=== PATIENT | female | born 1990 | race Two or more races ===

== ENCOUNTER 2016-08-28 17:33 | Emergency (ER) | payer SELFPAY ==
[~2016-08-28] VITALS: Ht 157.5 cm; Wt 70.3 kg
[2016-08-28 17:53] LABS: BILIRUBIN,URINE NEGATIVE (NEG); GLUCOSE,URINE NEGATIVE (NEG); NITRITE,URINE NEGATIVE (NEG); PH,URINE 7.5; PROTEIN,URINE 30 mg/dL (NEG-TRACE)
[2016-08-28 17:59] LABS: BACTERIA,URINE 0 /HPF (0-FEW); RBC,URINE OCC /HPF (0-2); SQUAMOUS EPITHELIAL CELL,UR FEW /LPF
[2016-08-28] MEDS ORDERED: ONDANSETRON PF 4 MG/2 ML VIAL. IV ONE (18:15)
[2016-08-28] MEDS ORDERED: IV NORMAL SALINE 1000ML BAG 1,000 ML IV ONE (18:15)
[2016-08-28 18:17] LABS: BASO # 0.1 x10^3/uL (0.0-0.2); BASO % 1 % (0-3); EOS % 3 % (0-3); HEMOGLOBIN 13.9 g/dL (12.0-15.5); LYMPH # 2.4 x10^3/uL (1.0-4.8); LYMPH % 21 % (24-48); MEAN CORPUSCULAR HEMOGLOBIN 29 pg (25-35); MEAN CORPUSCULAR HGB CONC 33 g/dL (31-37); MEAN CORPUSCULAR VOLUME 87 fL (79-100); MONO % 8 % (0-9); NEUT % 69 % (31-73); PLATELET COUNT 231 x10^3/uL (140-400); RED BLOOD COUNT 4.85 x10^6/uL (3.50-5.40); RED CELL DISTRIBUTION WIDTH 13.5 % (11.5-14.5); WHITE BLOOD COUNT 11.5 x10^3/uL (4.0-11.0)
[2016-08-28 18:30] LABS: CALCIUM 8.9 mg/dL (8.5-10.1); CREATININE 0.6 mg/dL (0.6-1.0); POTASSIUM 3.5 mmol/L (3.5-5.1)
[2016-08-28 18:36] LABS: ALBUMIN/GLOBULIN RATIO 0.9 (1.0-1.7); TOTAL BILIRUBIN 0.3 mg/dL (0.2-1.0); TOTAL PROTEIN 8.6 g/dL (6.4-8.2)
[2016-08-28] MEDS ORDERED: fentaNYL PF VIAL 100 MCG/2 ML VIAL IV PRN (18:45)
--- NOTE | 2016-08-28 19:26 | ED.ADGEN ---
Past Medical History Past Medical History: No Pertinent History Past Surgical History: Alcohol Use: Occasionally Additional Information: Pt states she had 2 drinks last night. Drug Use: None Adult General Chief Complaint Chief Complaint: ABDOMINAL PAIN IN HPI HPI Patient is a 26 year old woman, , with a history of for uncomplicated previous pregnancies, status post both vaginal delivery and , who presents emergency Department with a complaint of lower abdominal cramping, and spotting. Patient was not aware that she is prior to arrival in emergency department. She states that she has been breast-feeding for the past 14 months. Patient states that she noted abdominal cramping that feels consistent with cramping she expressed her previous pregnancies, and bright red blood noted on the toilet tissue when she wiped earlier today. Denies any kareem bleeding, any discharge or drainage, any fluid gush or passage of clots or material. She states that her last sexual intercourse was 3 days ago, states it was slightly painful was unusual. Denies any concerns for STI exposures. Denies any injuries, states that she was having cramping in her lower abdomen it did radiate to the back, but currently is not expressing any symptoms. She states symptoms do come and go. Denies any injuries, any fevers or chills, any chest pain, shortness breath, states that she did have one episode of nausea and vomiting this morning. No sick contacts or exposures. No urinary complaints. Patient's is present at bedside. Patient is Ethiopian speaking only, and translation obtained via language line biology department chair. Review of Systems Review of Systems Constitutional: Denies fever or chills. [] Eyes: Denies change in visual acuity. [] HENT: Denies nasal congestion or sore throat. [] Respiratory: Denies cough or shortness of breath. [] Cardiovascular: Denies chest pain or edema. [] GI: Cramping lower quadrant abdominal pain rating to the back, associated with nausea and vomiting, with vaginal spotting. : Denies dysuria. [] Musculoskeletal: Denies back pain or joint pain. [] Integument: Denies rash. [] Neurologic: Denies headache, focal weakness or sensory changes. [] Endocrine: Denies polyuria or polydipsia. [] Lymphatic: Denies swollen glands. [] Psychiatric: Denies depression or anxiety. [] Current Medications Current Medications Current Medications Medications (Trade) Dose Ordered Sig/Josiane Start Time Stop Time Status Last Admin Dose Admin Fentanyl Citrate (Fentanyl 2ml Vial) 25 mcg PRN Q15MIN PRN 08/28/16 18:45 08/28/16 20:47 DC 08/28/16 18:59 25 MCG Ondansetron HCl (Zofran) 4 mg 1X ONCE 08/28/16 18:15 08/28/16 18:16 DC 08/28/16 18:59 4 MG Sodium Chloride 1,000 ml @ 1,000 mls/hr 1X ONCE 08/28/16 18:15 08/28/16 19:14 DC 08/28/16 18:59 1,000 MLS/HR Allergies Allergies Allergies Coded Allergies Type Severity Reaction Last Updated Verified No Known Drug Allergies 08/28/16 No Physical Exam Physical Exam Constitutional: Well developed, well nourished, no acute distress, non-toxic appearance. [] HENT: Normocephalic, atraumatic, bilateral external ears normal, oropharynx moist, no oral exudates, nose normal. [] Eyes: PERRLA, EOMI, conjunctiva normal, no discharge. [] Neck: Normal range of motion, no tenderness, supple, no stridor. [] Cardiovascular:Heart rate regular rhythm, no murmur, S1, S2, no rubs or gallops. ] Lungs & Thorax: Bilateral breath sounds clear to auscultation, no wheezing, rhonchi, rales. No chest or crepitus or tenderness. [] Abdomen: Patient with tenderness palpation in the lower abdomen, across the entire area of her pelvis. No point tenderness, no rebound or rigidity. Patient with well-healed vertical surgical incision. Skin: Warm, dry, no erythema, no rash. [] Back: No tenderness, no CVA tenderness. [] Extremities: No tenderness, no cyanosis, no clubbing, ROM intact, no edema. [ Negative Homans sign.] Neurologic: Alert and oriented X 3, normal motor function, normal sensory function, no focal deficits noted. [] Psychologic: Affect normal, judgement normal, mood normal. [] examination: Normal-appearing external examination. Bimanual examination reveals external os which is fingertip, with a closed internal os, no CMT, no adnexal masses noted. Patient with small amount of mucus and dark red blood noted on glove. Speculum examination reveals a normal-appearing cervix, with a small amount of dark red blood and mucus at the os, no active bleeding. Specimens taken without issue. Current Patient Data Vital Signs Vital Signs Date Time Temp Pulse Resp B/P (MAP) Pulse Ox O2 Delivery O2 Flow Rate FiO2 08/28/16 20:10 76 18 120/80 (93) 100 Room Air 08/28/16 17:53 97.5 97.5 Lab Values Laboratory Tests Test 08/28/16 17:40 08/28/16 17:55 Urine Collection Type Unknown Urine Color Yellow Urine Clarity Clear Urine pH 7.5 Urine Specific [place] 1.025 Urine Protein 30 mg/dL (NEG-TRACE) Urine Glucose (UA) Negative mg/dL (NEG) Urine Ketones (Stick) Negative mg/dL (NEG) Urine Blood Trace (NEG) Urine Nitrite Negative (NEG) Urine Bilirubin Negative (NEG) Urine Urobilinogen Dipstick 1.0 mg/dL (0.2 mg/dL) Urine Leukocyte Esterase Trace (NEG) Urine RBC Occ /HPF (0-2) Urine WBC 1-4 /HPF (0-4) Urine Squamous Epithelial Cells Few /LPF Urine Bacteria 0 /HPF (0-FEW) Urine Mucus Mod /LPF White Blood Count 11.5 x10^3/uL (4.0-11.0) H Red Blood Count 4.85 x10^6/uL (3.50-5.40) Hemoglobin 13.9 g/dL (12.0-15.5) Hematocrit 42.0 % (36.0-47.0) Mean Corpuscular Volume 87 fL (79-100) Mean Corpuscular Hemoglobin 29 pg (25-35) Mean Corpuscular Hemoglobin Concent 33 g/dL (31-37) Red Cell Distribution Width 13.5 % (11.5-14.5) Platelet Count 231 x10^3/uL (140-400) Neutrophils (%) (Auto) 69 % (31-73) Lymphocytes (%) (Auto) 21 % (24-48) L Monocytes (%) (Auto) 8 % (0-9) Eosinophils (%) (Auto) 3 % (0-3) Basophils (%) (Auto) 1 % (0-3) Neutrophils # (Auto) 7.9 x10^3uL (1.8-7.7) H Lymphocytes # (Auto) 2.4 x10^3/uL (1.0-4.8) Monocytes # (Auto) 0.9 x10^3/uL (0.0-1.1) Eosinophils # (Auto) 0.3 x10^3/uL (0.0-0.7) Basophils # (Auto) 0.1 x10^3/uL (0.0-0.2) Maternal Serum HCG Beta Subunit 58580 mIU/mL (0-5) H Sodium Level 140 mmol/L (136-145) Potassium Level 3.5 mmol/L (3.5-5.1) Chloride Level 102 mmol/L (98-107) Carbon Dioxide Level 27 mmol/L (21-32) Anion Gap 11 (6-14) Blood Urea Nitrogen 5 mg/dL (7-20) L Creatinine 0.6 mg/dL (0.6-1.0) Estimated GFR (Cockcroft-Gault) 119.0 BUN/Creatinine Ratio 8 (6-20) Glucose Level 91 mg/dL (70-99) Calcium Level 8.9 mg/dL (8.5-10.1) Total Bilirubin 0.3 mg/dL (0.2-1.0) Aspartate Amino Transferase (AST) 82 U/L (15-37) H Alanine Aminotransferase (ALT) 197 U/L (14-59) H Alkaline Phosphatase 106 U/L (46-116) Total Protein 8.6 g/dL (6.4-8.2) H Albumin 4.0 g/dL (3.4-5.0) Albumin/Globulin Ratio 0.9 (1.0-1.7) L Lipase 127 U/L (73-393) Laboratory Tests 08/28/16 17:55 Laboratory Tests 08/28/16 17:55 Microbiology 08/28/16 Wet Prep - Final, Complete EKG EKG Not indicated.[] Radiology/Procedures Impressions: [facility] [address] [place] [address] IMAGING REPORT Signed PATIENT: ALBER OSWALD ACCOUNT: [id number] : 1990 LOCATION: ER AGE: 26 SEX: F EXAM STATUS: REG ER ORD. PHYSICIAN: JANY ROCHA DO REASON: Preg vag bleeding PROCEDURE: OB < 14 WKS Obstetric ultrasound less than 14 weeks: Reason for examination: with spotting. Patient breast feeding and unsure of last menstrual period. Transabdominal and transvaginal ultrasound examination of the pelvis was performed. Transabdominally, the uterus appears to measure 8.4 x 4.6 x 6.1 centimeters in greatest dimension. There is an intrauterine gestational sac present which appears to measure approximately 2.3 cm in greatest dimension which would correspond to gestational age of 7 weeks 2 days. Transvaginally, the uterus measures 9.2 x 5.5 x 4.3 cm in greatest dimension. There appear to be small nabothian cysts present at the cervix. An intrauterine gestational sac is present and a yolk sac is identified. Small pole was identified and appears to have a cardiac rate of 108 bpm. Left ovary measures 2.2 x 1.4 x 1.4 cm in greatest dimensions and shows normal vascular flow with no focal abnormalities. The right ovary is normal in size measuring 2.9 x 2.4 x 1.6 cm in greatest dimensions with good vascular flow. There is a probable corpus luteum present at the right ovary. Transvaginally, crown-rump is 0.49 mm corresponding to gestational age of 6 weeks 2 days. Estimated date of confinement 04/19/2017. IMPRESSION: Single viable intrauterine gestation present with a mean gestational age estimated transvaginally at 6 weeks 2 days with estimated date of confinement of April 19, 2017. Cardiac activity is seen with a cardiac rate of 108 bpm. Electronically signed by: Lane Gloria MD (08/28/2016 8:02 PM) DICTATED and SIGNED BY: LANE GLORIA MD DATE: 08/28/161954 CC: JANY ROCHA DO; LIZ RICKS DO ~ Course & Med Decision Making Course & Med Decision Making Pertinent Labs and Imaging studies reviewed. (See chart for details) Patient Rh+. Urinalysis negative for bacteria. Wet prep is unremarkable. Ultrasound reveals a single uterine , at 6 weeks 2 days, with heart tones noted, although they are low at 108. Patient has had no further bleeding in the emergency department. She states she does not currently have an RISK ASSESSOR with whom she has following, she was given contact information for Dr. Garza RISK ASSESSOR, also given clinic list information. Patient was given prescription for vitamins, and given information regarding threatened miscarriage in early . Recommended pelvic rest. Patient discharged home in stable condition with no further bleeding with family, with precautions and instructions as stated. Dragon Disclaimer Dragon Disclaimer This electronic medical record was generated, in whole or in part, using a voice recognition dictation system. Departure Impression: Primary Impression: Threatened miscarriage in early Disposition: HOME, SELF-CARE Condition: IMPROVED Scripts Pnv With Ca,No.72/Iron/Fa ( PLUS TABLET) 1 Each Tablet 1 TAB PO DAILY, #30 TAB 11 Refills Prov: JANY ROCHA DO 08/28/16 JANY ROCHA DO Aug 28, 2016 19:26
--- NOTE | 2016-08-28 20:05 | RAD ---
Obstetric ultrasound less than 14 weeks: Reason for examination: with spotting. Patient breast feeding and unsure of last menstrual period. Transabdominal and transvaginal ultrasound examination of the pelvis was performed. Transabdominally, the uterus appears to measure 8.4 x 4.6 x 6.1 centimeters in greatest dimension. There is an intrauterine gestational sac present which appears to measure approximately 2.3 cm in greatest dimension which would correspond to gestational age of 7 weeks 2 days. Transvaginally, the uterus measures 9.2 x 5.5 x 4.3 cm in greatest dimension. There appear to be small nabothian cysts present at the cervix. An intrauterine gestational sac is present and a yolk sac is identified. Small pole was identified and appears to have a cardiac rate of 108 bpm. Left ovary measures 2.2 x 1.4 x 1.4 cm in greatest dimensions and shows normal vascular flow with no focal abnormalities. The right ovary is normal in size measuring 2.9 x 2.4 x 1.6 cm in greatest dimensions with good vascular flow. There is a probable corpus luteum present at the right ovary. Transvaginally, crown-rump is 0.49 mm corresponding to gestational age of 6 weeks 2 days. Estimated date of confinement 04/19/2017. IMPRESSION: Single viable intrauterine gestation present with a mean gestational age estimated transvaginally at 6 weeks 2 days with estimated date of confinement of April 19, 2017. Cardiac activity is seen with a cardiac rate of 108 bpm. Electronically signed by: Yola Zayas MD (08/28/2016 8:02 PM)
[2016-08-28 20:10] VITALS: BP 120/80
[2016-08-28] MEDS ORDERED: PNV1TABL69 PO (20:15)
== END 2016-08-28 20:45 | disposition home or self-care (01) ==
LOC: ER 17:33
DX: O20.0 Threatened abortion (principal); Z3A.01 Less than 8 weeks gestation of pregnancy
CPT/HCPCS: 36415; 76801; 80053; 81001; 81025; 83690; 84702; 85027; 86901; 87086; 87491; 87591; 96361; 96374; 96375; 99285; J2405; J3010; J7030; Q0111

== ENCOUNTER 2016-09-17 20:32 | Observation (INO) | payer SELFPAY ==
[~2016-09-17] VITALS: Ht 154.9 cm; Wt 69.9 kg
[~2016-09-17 20:32] MED LIST: PNV1TABL69 PO
[2016-09-17] MEDS ORDERED: IV NORMAL SALINE 1000ML BAG 1,000 ML IV ONE (22:15)
[2016-09-17] MEDS: fentaNYL PF VIAL 100 MCG/2 ML VIAL IV PRN (22:19)
[2016-09-17 22:27] LABS: BASO # 0.1 x10^3/uL (0.0-0.2); BASO % 1 % (0-3); EOS % 3 % (0-3); HEMATOCRIT 38.1 % (36.0-47.0); HEMOGLOBIN 13.4 g/dL (12.0-15.5); LYMPH # 2.9 x10^3/uL (1.0-4.8); LYMPH % 26 % (24-48); MEAN CORPUSCULAR HEMOGLOBIN 30 pg (25-35); MEAN CORPUSCULAR HGB CONC 35 g/dL (31-37); MEAN CORPUSCULAR VOLUME 84 fL (79-100); MONO % 7 % (0-9); NEUT % 63 % (31-73); PLATELET COUNT 237 x10^3/uL (140-400); RED BLOOD COUNT 4.52 x10^6/uL (3.50-5.40); WHITE BLOOD COUNT 11.2 x10^3/uL (4.0-11.0)
--- NOTE | 2016-09-17 22:36 | RAD ---
Obstetrical ultrasound less than 14 weeks HISTORY: Pain, bright red vaginal bleeding COMPARISON: August 28, 2016 FINDINGS: Reportedly exam was made difficult due to patient's severe pain with poor toleration of the exam. Uterus measured 10.9 x 5.5 x 6.4 cm. There is a single intrauterine gestational sac. Gestational sac morphology is within normal limits. There is detectable cardiac activity and pole. There is demonstrable yolk sac. heart rate was 189 bpm. [place]-rump length measurement of 1.84 cm corresponds with 8 weeks 2 days. Adjusted ultrasound age is 8 weeks 2 days with estimated delivery date of 04/27/2017. Estimated delivery date is somewhat different than the previous exam as previously 04/19/2017. Transvaginal imaging could not be performed. No significant free fluid is demonstrated. There is demonstrable color flow of the ovaries bilaterally, limited images submitted. Accurate assessment of the placenta is limited. IMPRESSION: 1. There is viable intrauterine . Exam is limited as stated. Estimated delivery date is somewhat different than the previous exam performed on August 28, 2016. Assessment of growth later in the is advised. Electronically signed by: Chilango Weiss MD (09/17/2016 10:33 PM) [facility]
[2016-09-17 22:37] LABS: PROTHROMBIN TIME PATIENT 12.7 SEC (11.7-14.0)
--- NOTE | 2016-09-17 22:47 | PHYS DOC ---
Past Medical History Past Medical History: No Pertinent History Past Surgical History: Alcohol Use: Occasionally Drug Use: None Adult General Chief Complaint Chief Complaint: ABDOMINAL PAIN IN HPI HPI Patient is a 26 year old female who is 8 weeks , presents with vaginal bleeding since 1:00 today with cramping. The patient was seen here on August 28 and ultrasound showed a 6 week 2 day IUP with heart tones low at 108 but otherwise appeared normal. Patient tells me that when she came on August 28 she had some light vaginal bleeding which went away that day and she has had none since until today. Her bleeding today has been about as heavy as a period. She is having severe cramping at this time. Patient is 5 para 4 with 4 living children. Patient does not speak Portuguese, interpreter deaf from was used to communicate. Patient has not had any care and does not have an OB doctor yet. Review of Systems Review of Systems Constitutional: Denies fever or chills [] Eyes: Denies change in visual acuity, redness, or eye pain [] HENT: Denies nasal congestion or sore throat [] Respiratory: Denies cough or shortness of breath [] Cardiovascular: No additional information not addressed in HPI [] GI: Denies abdominal pain, nausea, vomiting, bloody stools or diarrhea [] : As in history of present illness Musculoskeletal: Denies back pain or joint pain [] Integument: Denies rash or skin lesions [] Neurologic: Denies headache, focal weakness or sensory changes [] Current Medications Current Medications Current Medications Medications (Trade) Dose Ordered Sig/Josiane Start Time Stop Time Status Last Admin Dose Admin Fentanyl Citrate (Fentanyl 2ml Vial) 50 mcg PRN Q15MIN PRN 09/17/16 22:15 09/18/16 22:14 09/18/16 00:48 50 MCG Sodium Chloride 1,000 ml @ 1,000 mls/hr 1X ONCE 09/17/16 22:15 09/17/16 23:14 DC 09/17/16 22:19 1,000 MLS/HR Allergies Allergies Allergies Coded Allergies Type Severity Reaction Last Updated Verified No Known Drug Allergies 08/28/16 No Physical Exam Physical Exam Constitutional: Well developed, well nourished, no acute distress, non-toxic appearance. Appears to have uncomfortable cramping, alert, appropriate. HENT: Normocephalic, atraumatic, bilateral external ears normal, nose normal. [ ] Eyes: conjunctiva normal, no discharge. [] Neck: Normal range of motion, no stridor. [] Cardiovascular:Heart rate regular rhythm, no murmur [] Lungs & Thorax: Bilateral breath sounds clear to auscultation [] Abdomen: Bowel sounds normal, soft, no tenderness, no masses, no pulsatile masses. Pelvic: External genitalia normal. Vaginal vault with a mild to moderate amount of blood, no tissue. Cervix closed without tissue present. Skin: Warm, dry, no erythema, no rash. [] Extremities: No tenderness, no cyanosis, no clubbing, ROM intact, no edema. [] Neurologic: Alert and oriented X 3, normal motor function, normal sensory function, no focal deficits noted. [] Current Patient Data Vital Signs Vital Signs Date Time Temp Pulse Resp B/P (MAP) Pulse Ox O2 Delivery O2 Flow Rate FiO2 09/17/16 22:21 64 143/85 (104) 100 Room Air 09/17/16 21:21 24 09/17/16 20:40 97.9 97.9 Lab Values Laboratory Tests Test 09/17/16 22:15 White Blood Count 11.2 x10^3/uL (4.0-11.0) H Red Blood Count 4.52 x10^6/uL (3.50-5.40) Hemoglobin 13.4 g/dL (12.0-15.5) Hematocrit 38.1 % (36.0-47.0) Mean Corpuscular Volume 84 fL (79-100) Mean Corpuscular Hemoglobin 30 pg (25-35) Mean Corpuscular Hemoglobin Concent 35 g/dL (31-37) Red Cell Distribution Width 13.0 % (11.5-14.5) Platelet Count 237 x10^3/uL (140-400) Neutrophils (%) (Auto) 63 % (31-73) Lymphocytes (%) (Auto) 26 % (24-48) Monocytes (%) (Auto) 7 % (0-9) Eosinophils (%) (Auto) 3 % (0-3) Basophils (%) (Auto) 1 % (0-3) Neutrophils # (Auto) 7.1 x10^3uL (1.8-7.7) Lymphocytes # (Auto) 2.9 x10^3/uL (1.0-4.8) Monocytes # (Auto) 0.8 x10^3/uL (0.0-1.1) Eosinophils # (Auto) 0.4 x10^3/uL (0.0-0.7) Basophils # (Auto) 0.1 x10^3/uL (0.0-0.2) Prothrombin Time 12.7 SEC (11.7-14.0) Prothrombin Time INR 1.0 (0.8-1.1) PTT 25 SEC (24-38) Sodium Level 137 mmol/L (136-145) Potassium Level 3.6 mmol/L (3.5-5.1) Chloride Level 102 mmol/L (98-107) Carbon Dioxide Level 24 mmol/L (21-32) Anion Gap 11 (6-14) Blood Urea Nitrogen 4 mg/dL (7-20) L Creatinine 0.7 mg/dL (0.6-1.0) Estimated GFR (Cockcroft-Gault) 99.6 Glucose Level 94 mg/dL (70-99) Calcium Level 8.6 mg/dL (8.5-10.1) Laboratory Tests 09/17/16 22:15 Laboratory Tests 09/17/16 22:15 EKG EKG [] Radiology/Procedures Radiology/Procedures Ultrasound obtained and read by the radiologist. Live IUP with heart tones present, no definite source of bleeding identified. [] Course & Med Decision Making Course & Med Decision Making Pertinent Labs and Imaging studies reviewed. (See chart for details) 26-year-old female 8 weeks IUP presents with severe cramping and bleeding. Clinically she appeared that she may be actively aborting but on exam there is no indication of this the time, ultrasound does show a live IUP. The patient continued to have significant bleeding and cramping and I don't believe it would be appropriate to discharge her with this severity of symptoms. She was given IV fluids and IV fentanyl for pain in the emergency department. I spoke with Dr. Peterson, SHOPPER'S AIDE physician payroll professional, who will admit the patient. I wrote bridge orders. Patient's blood type is Rh+. [] Dragon Disclaimer Dragon Disclaimer This electronic medical record was generated, in whole or in part, using a voice recognition dictation system. Departure Departure Impression: Primary Impression: Threatened affecting intrauterine Disposition: ADMITTED INPATIENT Admitting Physician: Other Condition: STABLE Referrals: LIZ RICKS DO (PCP) HOUSTON REDDY MD Sep 17, 2016 22:47
[2016-09-17 22:56] LABS: CALCIUM 8.6 mg/dL (8.5-10.1); CREATININE 0.7 mg/dL (0.6-1.0); GFR 99.6; POTASSIUM 3.6 mmol/L (3.5-5.1)
[2016-09-17] MEDS ORDERED: ONDANSETRON PF 4 MG/2 ML VIAL. IV PRN (23:00)
[2016-09-17] MEDS ORDERED: fentaNYL PF VIAL 100 MCG/2 ML VIAL IV PRN (23:00)
[2016-09-17] MEDS ORDERED: IV NORMAL SALINE 1000ML BAG 1,000 ML IV SCH (23:00)
[2016-09-17 23:45] VITALS: BP 147/91
[2016-09-18] MEDS: fentaNYL PF VIAL 100 MCG/2 ML VIAL IV PRN ×2 (00:48→01:05)
[2016-09-18 06:00] VITALS: BP 132/81
[2016-09-18 08:32] LABS: BASO # 0.1 x10^3/uL (0.0-0.2); BASO % 1 % (0-3); EOS % 6 % (0-3); HEMATOCRIT 37.4 % (36.0-47.0); HEMOGLOBIN 12.5 g/dL (12.0-15.5); LYMPH # 3.1 x10^3/uL (1.0-4.8); LYMPH % 35 % (24-48); MEAN CORPUSCULAR HEMOGLOBIN 29 pg (25-35); MEAN CORPUSCULAR HGB CONC 34 g/dL (31-37); MEAN CORPUSCULAR VOLUME 86 fL (79-100); MONO % 7 % (0-9); NEUT % 52 % (31-73); PLATELET COUNT 198 x10^3/uL (140-400); RED BLOOD COUNT 4.33 x10^6/uL (3.50-5.40); RED CELL DISTRIBUTION WIDTH 13.2 % (11.5-14.5)
--- NOTE | 2016-09-18 10:14 | PDOC ---
SUBJECTIVE Subjective 26 yrs old comes to ER with vaginal bleeding and 6 to 8 weeks OBJECTIVE Objective Pt complaining of acute pelvic pain and bleeding Vital Signs Vital Signs Date Time Temp Pulse Resp B/P (MAP) Pulse Ox O2 Delivery O2 Flow Rate FiO2 09/18/16 06:00 97.9 61 18 132/81 (98) 97.9 09/17/16 23:45 98.3 18 147/91 (109) 100 Room Air 98.3 09/17/16 22:21 64 143/85 (104) 100 Room Air 09/17/16 22:19 Room Air 09/17/16 22:08 67 133/86 (102) 09/17/16 21:21 62 24 148/93 (111) 100 Room Air 09/17/16 20:40 97.9 72 22 147/96 (113) 99 Room Air 97.9 I & O Intake and Output 09/18/16 07:00 Intake Total 1726 ml Output Total 400 ml Balance 1326 ml Intake IV Total 1000 ml Other 726 ml Output Urine Total 400 ml # Voids 2 PHYSICAL EXAM Physical Exam Admitted through ER for pain and Bleeding Pelvic exam shows cx closed with bleeding ASSESSMENT/PLAN Assessment/Plan Patient passed fetus and placental tissues while in hospital Uterie contents sent to Lab for Pathology. Problems: COMMENT Lab Laboratory Tests Test 09/17/16 22:15 09/18/16 08:15 White Blood Count 11.2 x10^3/uL (4.0-11.0) 9.0 x10^3/uL (4.0-11.0) Red Blood Count 4.52 x10^6/uL (3.50-5.40) 4.33 x10^6/uL (3.50-5.40) Hemoglobin 13.4 g/dL (12.0-15.5) 12.5 g/dL (12.0-15.5) Hematocrit 38.1 % (36.0-47.0) 37.4 % (36.0-47.0) Mean Corpuscular Volume 84 fL (79-100) 86 fL (79-100) Mean Corpuscular Hemoglobin 30 pg (25-35) 29 pg (25-35) Mean Corpuscular Hemoglobin Concent 35 g/dL (31-37) 34 g/dL (31-37) Red Cell Distribution Width 13.0 % (11.5-14.5) 13.2 % (11.5-14.5) Platelet Count 237 x10^3/uL (140-400) 198 x10^3/uL (140-400) Neutrophils (%) (Auto) 63 % (31-73) 52 % (31-73) Lymphocytes (%) (Auto) 26 % (24-48) 35 % (24-48) Monocytes (%) (Auto) 7 % (0-9) 7 % (0-9) Eosinophils (%) (Auto) 3 % (0-3) 6 % (0-3) Basophils (%) (Auto) 1 % (0-3) 1 % (0-3) Neutrophils # (Auto) 7.1 x10^3uL (1.8-7.7) 4.7 x10^3uL (1.8-7.7) Lymphocytes # (Auto) 2.9 x10^3/uL (1.0-4.8) 3.1 x10^3/uL (1.0-4.8) Monocytes # (Auto) 0.8 x10^3/uL (0.0-1.1) 0.6 x10^3/uL (0.0-1.1) Eosinophils # (Auto) 0.4 x10^3/uL (0.0-0.7) 0.5 x10^3/uL (0.0-0.7) Basophils # (Auto) 0.1 x10^3/uL (0.0-0.2) 0.1 x10^3/uL (0.0-0.2) Prothrombin Time 12.7 SEC (11.7-14.0) Prothromb Time International Ratio 1.0 (0.8-1.1) Activated Partial Thromboplast Time 25 SEC (24-38) Sodium Level 137 mmol/L (136-145) Potassium Level 3.6 mmol/L (3.5-5.1) Chloride Level 102 mmol/L (98-107) Carbon Dioxide Level 24 mmol/L (21-32) Anion Gap 11 (6-14) Blood Urea Nitrogen 4 mg/dL (7-20) Creatinine 0.7 mg/dL (0.6-1.0) Estimated GFR (Cockcroft-Gault) 99.6 Glucose Level 94 mg/dL (70-99) Calcium Level 8.6 mg/dL (8.5-10.1) NICK VANEGAS MD Sep 18, 2016 10:14
[2016-09-18 12:35] VITALS: BP 116/83
--- NOTE | 2016-09-21 12:12 | PATHOLOGY ---
PATHOLOGY REPORT * * * * * * * * FINAL DIAGNOSIS: Tissue designated "products of conception": - Products of conception comprised of blood clot containing segment of umbilical cord, embryo (2.3 cm), and decidual tissue showing recent hemorrhage. (JPM:caleb; 09/20/2016) REPORT ELECTRONICALLY SIGNED BY: Evans Meeks M.D. DATE/TIME: 09/20/2016 13:45 * * * * * * * * GROSS PATHOLOGY: The specimen is received in formalin, designated "Alber Nelson, products of conception" and consists of 15.2 g of dark reddish purple apparent blood clot, having an aggregate measurement of 7.4 x 3.5 x 1.3 cm in maximum dimensions. This is sectioned to reveal dark reddish purple blood clot surrounding a small area of spongy dark reddish brown tissue, which focally measures up to 0.9 cm in maximum dimensions. In this area there is a short segment of possible umbilical cord measuring 1.3 cm in length and 0.4 cm in diameter. Also within the specimen container is a small embryo, measuring 2.3 cm in length. The facial features are present and both upper and lower extremities are well formed with no obvious gross abnormalities. Piano Stringer sections are submitted in cassettes A1-A3. (JPM; 09/19/16) INITIAL CPT CODE(S): A; 78740 Professional services performed by [facility] [place] [address] Technical services performed by [facility] at [address] [place] [address], [address], [place] [address]. SPECIMEN(S) RECEIVED: A.Products of conception CLINICAL HISTORY: Threatened , vaginal bleeding; spontaneous PATIENT: ALBER ODONNELL /AGE: 6 1990 (Age: 26) PATIENT #: [id number] ALT CASE #: SPECIMEN COLLECTION DATE: 09/18/2016 SPECIMEN RECEIVED DATE: 09/19/2016 [facility] - [address] [place] [address] - PHONE: [phone] * * * END OF REPORT * * *
== END 2016-09-18 13:35 | disposition home health service (06) ==
LOC: ER 20:32 → 3 NORTH 22:50
PROVIDERS: ADMIT Obstetrics & Gynecology; ATTEND Obstetrics & Gynecology
DX: O20.0 Threatened abortion (principal); Z3A.08 8 weeks gestation of pregnancy
CPT/HCPCS: 36415; 76801; 80048; 85027; 85610; 85730; 86850; 86900; 86901; 96361; 96374; 96376; 99285; G0378; J3010; J7030; 96360; G0379

== ENCOUNTER 2017-10-24 16:14 | Observation (INO) | payer SELFPAY ==
[~2017-10-24 16:14] MED LIST changes: +PNV1TABL31 PO; -PNV1TABL69 PO
[2017-10-24] MEDS ORDERED: IV RINGERS,LACTATED 1000ML 1,000 ML IV SCH (17:00)
[2017-10-24 17:08] LABS: BILIRUBIN,URINE NEGATIVE (NEG); CLARITY,URINE CLEAR; COLOR,URINE YELLOW; NITRITE,URINE NEGATIVE (NEG); PROTEIN,URINE NEGATIVE (NEG-TRACE); UROBILINOGEN,URINE 0.2 mg/dL (0.2 mg/dL)
[2017-10-24 17:17] LABS: BACTERIA,URINE 0 /HPF (0-FEW); RBC,URINE OCC /HPF (0-2); SQUAMOUS EPITHELIAL CELL,UR MOD /LPF
[2017-10-24 17:59] LABS: BARBITURATES NEG (NEG); BENZODIAZEPINES NEG (NEG); CANNABINOIDS NEG (NEG); COCAINE NEG (NEG); METHADONE NEG (NEG); OPIATES NEG (NEG); PHENCYCLIDINE NEG (NEG)
[2017-10-24 18:05] LABS: AMPHETAMINE/METHAMPHETAMINE NEG (NEG)
[2017-10-24] MEDS ORDERED: hydrOXYzine PAMOATE 25 MG CAPSULE PO PRN (18:30)
--- NOTE | 2017-10-24 20:23 | RAD ---
Indication:PELVIC PAIN, PT SPEAKS [place], NO PREV US FOR THIS , TECHNIQUE: Ultrasound OB limited. COMPARISON: None FINDINGS: Single intrauterine is seen in breech presentation the time of scanning. Placenta is anterior and fundal in position. The head circumference measures 23.57 cm corresponding to gestation age of 25 weeks 4 days. Abdominal circumference measures 21.49 cm corresponding to gestation age of 25 weeks 6 days. Biparietal diameter measures 6.52 cm corresponding to gestation age of 26 weeks 2 days. Femoral length measures 4.9 cm corresponding to gestation age of 26 weeks 3 days. Heart rate 1 55 bpm. Bladder is seen. Amniotic fluid index 13.2 cm which is within normal limits. IMPRESSION: Single viable intrauterine with gestational age of 26 weeks 0 days with due date of 01/30/2018. Electronically signed by: Efra Wadsworth DO (10/24/2017 8:21 PM) [facility]
== END 2017-10-24 20:50 | disposition home or self-care (01) ==
LOC: 3 SO LND 16:14
PROVIDERS: ADMIT Obstetrics & Gynecology; ATTEND Obstetrics & Gynecology
DX: O26.892 Other specified pregnancy related conditions, second trimester (principal); R10.9 Unspecified abdominal pain; Z3A.25 25 weeks gestation of pregnancy; Z79.899 Other long term (current) drug therapy
CPT/HCPCS: 76815; 80307; 81001; G0378; G0379; Q0177; G0479